=== PATIENT | female | born 1945 | race Caucasian/White ===

== ENCOUNTER 2022-03-17 06:48 | Outpatient (CLI) | payer MEDICARE, BC, SELFPAY | END 2022-03-17 06:49 | disposition home or self-care (01) | LOC: INJ CL 06:51 | PROVIDERS: Visit Provider Family Medicine | DX: M54.16 Radiculopathy, lumbar region (principal); M51.36 Other intervertebral disc degeneration, lumbar region | CPT/HCPCS: 62323; Q9966 ==

== ENCOUNTER 2022-04-17 08:44 | Outpatient (CLI) | payer MEDICARE, BC, SELFPAY | END 2022-04-17 08:45 | disposition home or self-care (01) | PROVIDERS: PCP Internal Medicine; Visit Provider Family Medicine | DX: M54.16 Radiculopathy, lumbar region (principal); M51.36 Other intervertebral disc degeneration, lumbar region | CPT/HCPCS: 64483; J1100; Q9966 ==

== ENCOUNTER 2022-10-06 06:38 | Outpatient (CLI) | payer MEDICARE, BC, SELFPAY | END 2022-10-06 06:39 | disposition home or self-care (01) | PROVIDERS: PCP Internal Medicine; Visit Provider Family Medicine | DX: M54.16 Radiculopathy, lumbar region (principal); M51.36 Other intervertebral disc degeneration, lumbar region | CPT/HCPCS: 62323; J0702; Q9966 ==